=== PATIENT | female | born 1960 | race Hispanic/Latino ===

== ENCOUNTER 2018-05-05 15:52 | Emergency (ER) | payer OTHER ==
[2018-05-05 16:10] VITALS: BP 145/76; PULSE 80; RESP 18; TEMP 98.1; O2SAT 99
--- NOTE | 2018-05-05 17:14 | ED PDOC ---
Lower Extremity Pain/Injury Time Seen by Provider: 05/05/18 16:12 Chief Complaint (Nursing): Lower Extremity Problem/Injury Chief Complaint (Provider): RLE pain History Per: Patient History/Exam Limitations: no limitations Additional Complaint(s): [place] person got knocked over and fell onto her R leg, able to ambulate few steps. Denies numbness, tingling, weakness. Did not take any medication for pain. Past Medical History Reviewed: Nursing Documentation, Vital Signs Vital Signs: Last Vital Signs Temp 98.1 F 05/05/18 16:06 Pulse 80 05/05/18 16:06 Resp 18 05/05/18 16:06 BP 145/76 05/05/18 16:06 Pulse Ox 99 05/05/18 16:06 - Medical History PMH: No Chronic Diseases - Family History Family History: States: Unknown Family Hx - Living Arrangements Living Arrangements: With Family - Social History Current smoker - smoking cessation education provided: No Alcohol: None - Home Medications Home Medications: Ambulatory Orders Medication Instructions Recorded Naproxen [Naprosyn] 500 mg PO BID PRN #15 tablet 05/05/18 - Allergies Allergies/Adverse Reactions: Allergies Allergy/AdvReac Type Severity Reaction Status Date / Time No Known Allergies Allergy Unverified 05/05/18 16:20 Review of Systems Constitutional: Negative for: Fever Musculoskeletal: Positive for: Leg Pain. Negative for: Back Pain, Foot Pain Skin: Negative for: Rash, Lesions Neurological: Negative for: Weakness, Numbness, Headache Physical Exam - Reviewed Nursing Documentation Reviewed: Yes Vital Signs Reviewed: Yes - Physical Exam Appears: Positive for: Well, No Acute Distress Head Exam: Positive for: ATRAUMATIC, NORMAL INSPECTION Skin: Positive for: Normal Color, Warm, Dry Eye Exam: Positive for: Normal appearance, EOMI, PERRL Extremity: Positive for: Tenderness (Knee --> ankle laterally), Capillary Refill (< 2 sec). Negative for: Normal ROM (Decreased ROM @ R knee secondary to pain), Pedal Edema, Calf Tenderness, Deformity, Swelling Neurologic/Psych: Positive for: Alert, Oriented. Negative for: Motor/Sensory Deficits - ECG O2 Sat by Pulse Oximetry: 99 Medical Decision Making Medical Decision Makin yo female with RLE injury. - XR R knee - XR R tib-fib - XR R ankle - Motrin Accession No. : [id number] Patient Name / ID : MARY ANN DANGELO / [id number] Exam Date : 05/05/2018 16:39:25 ( Approved ) Study Comment : Sex / Age : F 58Y Creator : Humberto Kim MD Dictator : Humberto Kim MD Accelerator Operator : Shop Tech : Humberto Kim MD Approver2 : Report Date : 05/06/2018 08:47:55 My Comment : Date of service: 05/05/2018 PROCEDURE: Radiographs of the right tibia and fibula. HISTORY: Injury COMPARISON: None available. TECHNIQUE: Frontal and lateral views obtained. FINDINGS: BONES: No fracture or destructive lesion. JOINT SPACES: Unremarkable. OTHER FINDINGS: None. IMPRESSION: Unremarkable radiographs of the left tibia and fibula. Accession No. : [id number] Patient Name / ID : MARY ANN DANGELO / [id number] Exam Date : 05/05/2018 16:39:25 ( Approved ) Study Comment : Sex / Age : 8Y Creator : Humberto Kim MD Dictator : Humberto Kim MD Accelerator Operator : Shop Tech : Humberto Kim MD Approver2 : Report Date : 05/06/2018 08:30:51 My Comment : Date of service: 05/05/2018 PROCEDURE: Right Knee Radiographs. HISTORY: Injury COMPARISON: None. FINDINGS: BONES: No acute fracture or destructive bony lesion identified. JOINTS: Degenerative joint space narrowing and articular cortical sclerosis is appreciated at the medial femorotibial compartment. No subluxed station or dislocation. JOINT EFFUSION: None. OTHER FINDINGS: None. IMPRESSION: Limited degenerative changes. No acute fracture or dislocation. Accession No. : [id number] Patient Name / ID : MARY ANN DANGELO / [id number] Exam Date : 05/05/2018 16:39:25 ( Approved ) Study Comment : Sex / Age : F / 58Y Creator : Humberto Kim MD Dictator : Humberto Kim MD Accelerator Operator : Shop Tech : Humberto Kim MD Approver2 : Report Date : 05/06/2018 08:28:58 My Comment : Date of service: 05/05/2018 PROCEDURE: Right Ankle Radiographs. HISTORY: Injury COMPARISON: None FINDINGS: BONES: No acute fracture or destructive bony lesion identified. JOINTS: Normal. No osteoarthritis. Ankle mortise maintained. Talar dome intact SOFT TISSUES: Normal. OTHER FINDINGS: None. IMPRESSION: Unremarkable right ankle radiographs. Disposition - Clinical Impression Clinical Impression: Leg injury - Disposition Referrals: Kamini Peña MD [Staff Provider] - Disposition: Routine/Home Disposition Time: 17:36 Condition: STABLE Additional Instructions: FOLLOW-UP WITH PMD WITHIN 2 DAYS FOR REEVALUATION. Prescriptions: Naproxen [Naprosyn] 500 mg PO BID PRN #15 tablet PRN Reason: Pain, Moderate (4-7) Instructions: Knee Sprain (DC) Forms: [employer] ([place]ian)
--- NOTE | 2018-05-06 08:30 | RAD ---
Date of service: 05/05/2018 PROCEDURE: Right Ankle Radiographs. HISTORY: Injury COMPARISON: None FINDINGS: BONES: No acute fracture or destructive bony lesion identified. JOINTS: Normal. No osteoarthritis. Ankle mortise maintained. Talar dome intact SOFT TISSUES: Normal. OTHER FINDINGS: None. IMPRESSION: Unremarkable right ankle radiographs.
--- NOTE | 2018-05-06 08:32 | RAD ---
Date of service: 05/05/2018 PROCEDURE: Right Knee Radiographs. HISTORY: Injury COMPARISON: None. FINDINGS: BONES: No acute fracture or destructive bony lesion identified. JOINTS: Degenerative joint space narrowing and articular cortical sclerosis is appreciated at the medial femorotibial compartment. No subluxed station or dislocation. JOINT EFFUSION: None. OTHER FINDINGS: None. IMPRESSION: Limited degenerative changes. No acute fracture or dislocation.
--- NOTE | 2018-05-06 08:49 | RAD ---
Date of service: 05/05/2018 PROCEDURE: Radiographs of the right tibia and fibula. HISTORY: Injury COMPARISON: None available. TECHNIQUE: Frontal and lateral views obtained. FINDINGS: BONES: No fracture or destructive lesion. JOINT SPACES: Unremarkable. OTHER FINDINGS: None. IMPRESSION: Unremarkable radiographs of the left tibia and fibula.
== END 2018-05-05 18:10 | disposition home or self-care (01) ==
LOC: H.ER 15:52
DX: S89.91XA Unspecified injury of right lower leg, initial encounter (principal); W22.8XXA Striking against or struck by other objects, initial encounter; Y92.89 Other specified places as the place of occurrence of the external cause